=== PATIENT | female | born 2005 | race Caucasian/White ===

== ENCOUNTER 2025-02-20 11:49 | Outpatient (CLI) | payer BC, SELFPAY | END 2025-02-20 11:50 | disposition home or self-care (01) | PROVIDERS: PCP Family Medicine; Visit Provider Family Medicine | DX: R53.83 Other fatigue (principal) | CPT/HCPCS: 80048; 84439; 84443; 85025 ==

== ENCOUNTER 2025-05-30 11:37 | Outpatient (CLI) | payer BC, SELFPAY | END 2025-05-30 11:38 | disposition home or self-care (01) | PROVIDERS: PCP Family Medicine; Visit Provider Family Medicine | DX: R53.83 Other fatigue (principal) | CPT/HCPCS: 84443; 87086 ==